=== PATIENT | male | born 1970 | race Two or more races ===

== ENCOUNTER 2021-07-21 19:10 | Emergency (ER) | payer OTHER ==
[~2021-07-21] VITALS: Ht 160 cm; Wt 99.8 kg
== END 2021-07-22 | disposition home or self-care (01) ==
LOC: ER 19:10
DX: S67.22XA Crushing injury of left hand, initial encounter (principal); X58.XXXA Exposure to other specified factors, initial encounter; Y93.89 Activity, other specified; Y92.814 Boat as the place of occurrence of the external cause